=== PATIENT | male | born 1990 | race Caucasian/White ===

== ENCOUNTER 2020-01-18 20:33 | Emergency (ER) | payer MEDICAID ==
[~2020-01-18] VITALS: Ht 182.9 cm; Wt 80.3 kg
--- NOTE | 2020-01-18 20:45 | NUR ---
MARIA LUISAD ASSESSING PT IN CHAIR A
[2020-01-18 20:46] VITALS: BP 129/65
--- NOTE | 2020-01-18 21:00 | NUR ---
no nursing care provided.
[2020-01-18 21:03] VITALS: BP 129/65
--- NOTE | 2020-01-18 21:03 | NUR ---
Patient discharged with v/s stable. Written and verbal after care instructions given and explained. Patient alert, oriented and verbalized understanding of instructions. Ambulatory with steady gait. All questions addressed prior to discharge. ID band removed. Patient advised to follow up with PMD. Rx of bactrim, keflex given. Patient educated on indication of medication including possible reaction and side effects. Opportunity to ask questions provided and answered.
== END 2020-01-18 21:03 | disposition home or self-care (01) ==
LOC: MED 20:33
DX: L02.818 Cutaneous abscess of other sites (principal); F12.10 Cannabis abuse, uncomplicated; F11.10 Opioid abuse, uncomplicated
CPT/HCPCS: 99283

== ENCOUNTER 2020-05-24 17:26 | Emergency (ER) | payer MEDICAID ==
[~2020-05-24] VITALS: Ht 185.4 cm; Wt 79.8 kg
[2020-05-24 18:08] VITALS: BP 127/72
--- NOTE | 2020-05-24 18:18 | NUR ---
Patient assessed by Dr Banda, no nursing interventions performed
--- NOTE | 2020-05-24 18:20 | NUR ---
discharged without signing paperwork
[2020-05-24 18:37] VITALS: BP 127/72
== END 2020-05-24 18:20 | disposition home or self-care (01) ==
LOC: MED 17:26
DX: F15.10 Other stimulant abuse, uncomplicated (principal); F13.20 Sedative, hypnotic or anxiolytic dependence, uncomplicated; F11.10 Opioid abuse, uncomplicated
CPT/HCPCS: 99281